=== PATIENT | female | born 1995 | race Caucasian/White ===

== ENCOUNTER 2016-06-19 10:14 | Emergency (ER) | payer MEDICAID, OTHER ==
--- NOTE | 2016-06-19 10:35 | ER Document Report ---
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 A comprehensive ED assessment and evaluation of the patient, analysis of test results and completion of the medical decision making process will be conducted by additional ED providers. TRAVEL OUTSIDE OF THE [place] 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 - Immunizations Hx Diphtheria, Pertussis, Tetanus Vaccination: Yes Physical Exam - Vital signs Vitals: Temp Pulse Resp BP Pulse Ox 98.0 F 86 16 118/75 100 06/19/16 10:06/19/16 10:06/19/16 10:06/19/16 10:06/19/16 10:28 Course - Vital Signs Vital signs: Temp Pulse Resp BP Pulse Ox 98.0 F 86 16 118/75 100 06/19/16 10:06/19/16 10:28 06/19/16 10:06/19/16 10:28 06/19/16 10:28
--- NOTE | 2016-06-19 11:45 | ER Document Report ---
ED Respiratory Problem - General Chief Complaint: Leg Swelling Stated Complaint: LEG PAIN Time seen by provider: 11:39 Mode of Arrival: Ambulatory Information source: Patient Notes: This is a 21-year-old female with a history of an extensive DVT in the left iliac vein (factor V deficiency, May-Thurner syndrome) in 2013. Patient was treated with Coumadin and at that time (with poor control). Patient had most recently been on Lovenox during (delivered 6 months ago). The patient presents to the emergency room with pleuritic left chest pain for the past day. Patient also states she feels "knots" in her left inguinal area. TRAVEL OUTSIDE OF THE [place] 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 - Immunizations Hx Diphtheria, Pertussis, Tetanus Vaccination: Yes Physical Exam - Vital signs Vitals: Temp Pulse Resp BP Pulse Ox 98.0 F 86 16 118/75 100 06/19/16 10:28 06/19/16 10:28 06/19/16 10:28 06/19/16 10:28 06/19/16 10:28 Notes: Physical exam: GENERAL: 21-year-old female, alert and oriented 3, no acute distress HEAD: Atraumatic, normocephalic. EYES: Pupils equal round and reactive to light, extraocular movements intact, sclera anicteric, conjunctiva are normal. ENT: TMs normal, nares patent, oropharynx clear without exudates. Moist mucous membranes. NECK: Normal range of motion, supple without lymphadenopathy or JVD. LUNGS: Breath sounds clear to auscultation bilaterally and equal. No wheezes rales or rhonchi. HEART: Regular rate and rhythm without murmurs, rubs or gallops. ABDOMEN: Soft, nontender, normoactive bowel sounds. No guarding, no rebound. No masses appreciated. EXTREMITIES: The patient is thin, she does have what feels like some shotty, tender left inguinal lymphadenopathy. There is no significant swelling of the lower extremities in the lower extremities neurovascularly intact. There is normal range of motion of the lower extremity. NEUROLOGICAL: Cranial nerves II through XII grossly intact. Normal speech, normal gait. PSYCH: Normal mood, normal affect. SKIN: Warm, Dry, normal turgor, no rashes or lesions noted. Course - Vital Signs Vital signs: Temp Pulse Resp BP Pulse Ox 98.0 F 86 16 118/75 100 06/19/16 10:28 06/19/16 10:28 06/19/16 10:28 06/19/16 10:28 06/19/16 10:28 - Laboratory Result Diagrams: 06/19/16 12:24 06/19/16 12:24 Discharge - Discharge Clinical Impression: pleurisy, left inguinal lymph node Condition: Stable Disposition: HOME, SELF-CARE Additional Instructions: Recommendations: As we discussed: The CT of the chest showed no evidence of blood clots in the lungs. The ultrasound of the leg showed no evidence of blood clots in the leg. It did show a large lymph node which can sometimes arise due to infection. As far as the contrast he received from a CTA: [employer] feels it safe for breast-feeding to continue without interruption after the administration of iodinated contrast. However, even though the risk of radiation is very low, you can discard (pump and dump) the breast milk for the next 24 hours. Follow-up with your primary care doctor: Bring a copy of today's labs, CT report , ultrasound report with you. Return to the emergency room for any worsening pain, shortness of breath or any concerns or getting worse. Referrals: TALI RENAE, KALI-C [Primary Care Provider] - Follow up in 3-5 days
--- NOTE | 2016-06-19 11:53 | XCELERA REPORT ---
[address] [address] Lower Extremity Venous Evaluation Name: ARAVIND CADENA Age: 21 yrs Gender: Female : 1995 Patient Status: Preadmit Patient Location: ER Study Date: 06/19/2016 10:55 AM Procedure: Color flow and duplex imaging of the veins of the left lower extremity as well as the right Common Femoral vein. Reason For Study: LLE swelling Ordering Physician: RUDOLPH RUELAS PA-C Performed By: Amarilys Savage Right Sided Venous Evaluation The right common femoral vein is fully compressible. Spontaneous and phasic flow is present in the right common femoral vein. Left Sided Venous Evaluation Incidental finding of a vascularized lymph node, 2.88 x 0.77 cms in the left groin. Normal vessel filling wall to wall, compression and augmentation as well as Colour flow down to the infrageniculate veins. Critical Findings Called in to Dr Bermeo at 1150. Interpretation Summary No duplex evidence of DVT or obstruction in the left lower extremity nor in the right Common Femoral vein. Vascular left groin node appreciated. : RUDOLPH RUELAS PA-C > Vinay Ricci
[2016-06-19 12:38] LABS: ABSOLUTE BASOPHILS # (AUTO) 0.1 10^3/uL (0.0-0.2); ABSOLUTE EOSINOPHILS # (AUTO) 0.2 10^3/uL (0.0-0.6); ABSOLUTE LYMPHOCYTES (AUTO) 1.3 10^3/uL (0.5-4.7); ABSOLUTE MONOCYTES (AUTO) 0.6 10^3/uL (0.1-1.4); ABSOLUTE NEUT (AUTO) 5.9 10^3/uL (1.7-8.2); BASOPHILS % (AUTO) 0.8 % (0-2); HEMATOCRIT 41.1 % (36.0-47.0); HGB HCT DIFFERENCE 0.9; MEAN CORPUSCULAR HEMOGLOBIN 30.6 pg (27.0-33.4); MEAN CORPUSCULAR VOLUME 90 fl (80-97); MONOCYTES % (AUTO) 7.9 % (3-13); RED BLOOD COUNT 4.58 10^6/uL (3.72-5.28); RED CELL DISTRIBUTION WIDTH 12.3 % (11.5-14.0); SEGMENTED NEUTROPHILS % (AUTO) 72.3 % (42-78); WHITE BLOOD COUNT 8.1 10^3/uL (4.0-10.5)
[2016-06-19 12:46] LABS: PROTHROMBIN TIME 13.5 SEC (11.4-15.4)
[2016-06-19 12:57] LABS: ALANINE AMINOTRANSFERASE 33 U/L (9-52); ALKALINE PHOSPHATASE 66 U/L (38-126); ANION GAP 10 (5-19); ASPARTATE AMINO TRANSFERASE 26 U/L (14-36); BLOOD UREA NITROGEN 7 mg/dL (7-20); CALCIUM 9.8 mg/dL (8.4-10.2); CARBON DIOXIDE 29 mmol/L (22-30); CHLORIDE 104 mmol/L (98-107); CREATININE RESULT 0.67 mg/dL (0.52-1.25); GLUCOSE 86 mg/dL (75-110); POTASSIUM 3.8 mmol/L (3.6-5.0); SODIUM 143.2 mmol/L (137-145); TOTAL PROTEIN 7.4 g/dL (6.3-8.2)
[2016-06-19 17:00] VITALS: BP 102/62
== END 2016-06-19 17:00 | disposition home or self-care (01) ==
LOC: ER 10:14
DX: R09.1 Pleurisy (principal); R59.1 Generalized enlarged lymph nodes; M79.89 Other specified soft tissue disorders; Z91.040 Latex allergy status; Z88.2 Allergy status to sulfonamides; Z86.718 Personal history of other venous thrombosis and embolism
CPT/HCPCS: 36415; 71275; 76705; 80053; 84702; 85025; 85610; 93971; 99284

== ENCOUNTER 2016-11-26 18:04 | Emergency (ER) | payer OTHER ==
--- NOTE | 2016-11-26 18:44 | ER Document Report ---
ED General - General Chief Complaint: Abdominal Pain Stated Complaint: ABDOMINAL BLOATING Time Seen by Provider: 11/26/16 18:37 Mode of Arrival: Ambulatory Information source: Patient Notes: 21-year-old female presents with complaints of bulging in her left lower quadrant. Patient admits to history of ovarian cysts the size of the great foods. Patient denies any fevers chills nausea vomiting or diarrhea. Patient denies any constipation. Patient has had normal bowel movement. Patient does admit that feels like something pushes out and then pushes back in. When he pushes out it feels hard and tender TRAVEL OUTSIDE OF THE [place] IN LAST 30 DAYS: No - HPI Onset: Just prior to arrival Onset/Duration: Sudden Quality of pain: Achy Severity: Mild Pain Level: 1 Associated symptoms: None Exacerbated by: Denies Relieved by: Denies Similar symptoms previously: No Recently seen / treated by doctor: No - Related Data Allergies/Adverse Reactions: alcohol Allergy (Verified 06/19/16 10:30) latex [Latex] Allergy (Verified 06/19/16 10:30) Sulfa (Sulfonamide Antibiotics) Allergy (Verified 06/19/16 10:30) Past Medical History - Social History Smoking Status: Never Smoker Cigarette use (# per day): No Chew tobacco use (# tins/day): No Smoking Education Provided: No Family History: Reviewed & Not Pertinent Patient has suicidal ideation: No Patient has homicidal ideation: No - Past Medical History Cardiac Medical History: Reports: 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 - Immunizations Hx Diphtheria, Pertussis, Tetanus Vaccination: Yes Review of Systems - Review of Systems Notes: REVIEW OF SYSTEMS: CONSTITUTIONAL : Denies fever, chills, or sweats. Denies recent illness. EENT: Denies eye, ear, throat, or mouth pain or symptoms. Denies nasal or sinus congestion or discharge. Denies throat, tongue, or mouth swelling or difficulty swallowing. CARDIOVASCULAR: Denies chest pain. Denies palpitations or racing or irregular heart beat. Denies ankle edema. RESPIRATORY: Denies cough, cold, or chest congestion. Denies shortness of breath, difficulty breathing, or wheezing. GASTROINTESTINAL: Admits to abdominal pain GENITOURINARY: Denies difficulty urinating, painful urination, burning, frequency, blood in urine, or discharge. FEMALE GENITOURINARY: Denies vaginal bleeding, heavy or abnormal periods, irregular periods. Denies vaginal discharge or odor. MUSCULOSKELETAL: Denies back or neck pain or stiffness. Denies joint pain or swelling. SKIN: Denies rash, lesions or sores. HEMATOLOGIC : Denies easy bruising or bleeding. LYMPHATIC: Denies swollen, enlarged glands. NEUROLOGICAL: Denies confusion or altered mental status. Denies passing out or loss of consciousness. Denies dizziness or lightheadedness. Denies headache. Denies weakness or paralysis or loss of use of either side. Denies problems with gait or speech. Denies sensory loss, numbness, or tingling. Denies seizures. PSYCHIATRIC: Denies anxiety or stress. Denies depression, suicidal ideation, or homicidal ideation. ALL OTHER SYSTEMS REVIEWED AND NEGATIVE. PHYSICAL EXAMINATION: GENERAL: Well-appearing, well-nourished and in no acute distress. very thin female HEAD: Atraumatic, , baseline deformity EYES: Pupils equal round and reactive to light, extraocular movements intact, conjunctiva are normal. ENT: Nares patent, oropharynx clear without exudates. Moist mucous membranes. NECK: Normal range of motion, supple without lymphadenopathy LUNGS: Breath sounds clear to auscultation bilaterally and equal. No wheezes rales or rhonchi. HEART: Regular rate and rhythm without murmurs ABDOMEN: Soft, nontender, nondistended abdomen. No guarding, no rebound. No masses appreciated. no pulsatile masses Female : deferred Musculoskeletal: Normal range of motion, no pitting or edema. No cyanosis. NEUROLOGICAL: Cranial nerves grossly intact. Normal speech, normal gait. Normal sensory, motor exams PSYCH: Normal mood, normal affect. SKIN: Warm, Dry, normal turgor, no rashes or lesions noted. Dictation was performed using [employer] recognition software Physical Exam - Vital signs Vitals: Temp Pulse Resp BP Pulse Ox 98.4 F 72 20 120/91 H 100 11/26/16 18:10 11/26/16 18:10 11/26/16 18:10 11/26/16 18:10 11/26/16 18:10 Course - Re-evaluation Re-evalutation: 11/26/16 18:43 There is no bulging noted abdomen is nontender she is extremely thin and otherwise well-appearing, at her request I will ultrasound her for her ovaries but ovarian cyst should not bulge out and then go back and, at most patient has a small hernia which is not noticed on physical examination at this time as patient is asymptomatic 11/26/16 20:57 Patient has an extensive medical history, I spent about 20 minutes speaking with her in regards to life-threatening risk factor My concern the patient concern is that she had a stent in her iliac, patient is not having any severe pain and the pain comes and goes, it bulges intermittently , and the only diagnosis that makes sense would be a hernia. I explained to her very strict return precautions regarding her stent and her clotting disorders. A clot by itself should not cause bulging of the abdomen, it should not cause intermittent abdominal cramping pain. I did explain that the ultrasound today does not evaluate for the stent she states she understands , we do not have vascular ultrasound at this time patient has been instructed that if she does have an emergency that she must return and that we would transfer her at that time After performing a Medical Screening Examination, I estimate there is LOW risk for ACUTE APPENDICITIS, BOWEL OBSTRUCTION, ACUTE CHOLECYSTITIS, PERFORATED DIVERTICULITIS, INCARCERATED HERNIA, PANCREATITIS, PELVIC INFLAMMATORY DISEASE, PERFORATED ULCER, ECTOPIC , or TUBO-OVARIAN ABSCESS, thus I consider the discharge disposition reasonable. Also, there is no evidence or peritonitis , sepsis, or toxicity. I have reevaluated this patient multiple times and no significant life threatening changes are noted. The patient and I have discussed the diagnosis and risks, and we agree with discharging home with close follow-up with the understanding that symptoms and presentations can change. We also discussed returning to the Emergency Department immediately if new or worsening symptoms occur. We have discussed the symptoms which are most concerning (e.g., bloody stool, fever, changing or worsening pain, vomiting) that necessitate immediate return. - Vital Signs Vital signs: Temp Pulse Resp BP Pulse Ox 98.4 F 72 20 120/91 H 100 11/26/16 18:10 11/26/16 18:10 11/26/16 18:10 11/26/16 18:10 11/26/16 18:10 - Diagnostic Test Radiology reviewed: Image reviewed, Reports reviewed - Patient provided with discharge instructions with report Discharge - Discharge Clinical Impression: Abdominal wall bulge, Ruptured ovarian cyst Condition: Stable Disposition: HOME, SELF-CARE Instructions: Abdominal Pain ([facility]) Additional Instructions: At this time there are no life-threatening issues noted however given your extensive history if any symptoms appeared to worsen or there are any other concerns at all you must return immediately for reevaluation. At this time besides abdominal bulging that improves intermittently you have no complaints, however you must return if there are any other issues Referrals: GABI LEON MD [ACTIVE STAFF] - Follow up tomorrow ROBI WAKEFIELD MD [ACTIVE STAFF] - Follow up tomorrow SARIKA RENAE MD [ACTIVE STAFF] - Follow up tomorrow
[2016-11-26 19:06] LABS: APPEARANCE,URINE CLEAR; BILIRUBIN,URINE NEGATIVE (NEGATIVE); GLUCOSE, URINE NEGATIVE (NEGATIVE); KETONES,URINE NEGATIVE (NEGATIVE); LEUKOCYTE ESTERASE,URINE NEGATIVE (NEGATIVE); NITRITE,URINE NEGATIVE (NEGATIVE); PROTEIN,URINE NEGATIVE (NEGATIVE); URINE SPECIFIC GRAVITY 1.008; UROBILINOGEN,URINE NEGATIVE mg/dL (<2.0)
--- NOTE | 2016-11-26 20:13 | RADIOLOGY REPORT (SQ) ---
EXAM DESCRIPTION: U/S NON-OB PELVIS TV W/O DOP COMPLETED DATE/TIME: 11/26/2016 8:00 pm REASON FOR STUDY: ovarian cyst COMPARISON: None. TECHNIQUE: Dynamic and static grayscale images acquired of the pelvis via transvaginal approach and recorded on PACS. Additional selected color Doppler and spectral images recorded. LIMITATIONS: None. FINDINGS: UTERUS: Contour normal. No mass. ENDOMETRIAL STRIPE: No focal or generalized thickening. No masses. CERVIX: No nabothian cysts. RIGHT OVARY: 2.2 cm cyst. RIGHT OVARY DOPPLER: Normal arterial vascular flow without evidence for torsion. LEFT OVARY: No abnormal masses. LEFT OVARY DOPPLER: Normal arterial vascular flow without evidence for torsion. FREE FLUID: Mild cul-de-sac free fluid. OTHER: No other significant finding. MEASUREMENTS: UTERUS: 6.1 x 4.0 x 3.5 cm ENDOMETRIAL STRIPE: 4.5 mm RIGHT OVARY: 4.5 x 3.5 x 1.8 cm LEFT OVARY: 1.6 x 3.1 x 1.2 cm IMPRESSION: Probable ruptured 2.2 cm right ovarian cyst. TECHNICAL DOCUMENTATION: JOB ID: [id number] [facility]- All Rights Reserved
[2016-11-26] MEDS ORDERED: HYDROCODONE/ACETAMINOPHEN 5-325 MG 6 TAB/DSPK PO PRN (20:52)
[2016-11-26 21:07] VITALS: BP 99/62
== END 2016-11-26 21:07 | disposition home or self-care (01) ==
LOC: ER 18:04
DX: R19.04 Left lower quadrant abdominal swelling, mass and lump (principal); N83.209 Unspecified ovarian cyst, unspecified side; R10.9 Unspecified abdominal pain; D68.51 Activated protein C resistance; D72.0 Genetic anomalies of leukocytes; Z95.828 Presence of other vascular implants and grafts; J45.909 Unspecified asthma, uncomplicated; Z88.2 Allergy status to sulfonamides; Z91.040 Latex allergy status; Z91.018 Allergy to other foods
CPT/HCPCS: 76830; 81001; 81025; 99284

== ENCOUNTER 2017-03-17 11:29 | Emergency (ER) | payer OTHER ==
--- NOTE | 2017-03-17 11:51 | ER Document Report ---
ED Medical Screen (RME) - General Chief Complaint: Loss of Vision Stated Complaint: BLACKED OUT Time Seen by Provider: 03/17/17 11:44 Mode of Arrival: Ambulatory Information source: Patient TRAVEL OUTSIDE OF THE [place] IN LAST 30 DAYS: No - HPI Patient complains to provider of: Vision loss in right eye intermittent Notes: 03/17/17 11:51 Patient is a 22-year-old female with a complicated medical history including factor V Leiden deficiency and may So syndrome, who takes a daily baby aspirin at this point, presenting with intermittent right eye vision loss, stating that her vision in her right eye will black out for approximately 2 minutes at a time, today she felt like she was going to pass out when it occurred as well - Related Data Allergies/Adverse Reactions: alcohol Allergy (Verified 03/17/17 11:34) latex [Latex] Allergy (Verified 03/17/17 11:34) Sulfa (Sulfonamide Antibiotics) Allergy (Verified 03/17/17 11:34) Past Medical History - Social History Frequency of alcohol use: None Drug Abuse: None - Past Medical History Cardiac Medical History: Reports: 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 - Immunizations Hx Diphtheria, Pertussis, Tetanus Vaccination: Yes Physical Exam - Vital signs Vitals: Temp Pulse Resp BP Pulse Ox 98.7 F 112 H 16 127/88 H 100 03/17/17 11:34 03/17/17 11:34 03/17/17 11:34 03/17/17 11:34 03/17/17 11:34 Course - Vital Signs Vital signs: Temp Pulse Resp BP Pulse Ox 98.7 F 112 H 16 127/88 H 100 03/17/17 11:34 03/17/17 11:34 03/17/17 11:34 03/17/17 11:34 03/17/17 11:34
[2017-03-17 12:12] LABS: ABSOLUTE EOSINOPHILS # (AUTO) 0.5 10^3/uL (0.0-0.6); ABSOLUTE LYMPHOCYTES (AUTO) 1.5 10^3/uL (0.5-4.7); ABSOLUTE MONOCYTES (AUTO) 0.4 10^3/uL (0.1-1.4); ABSOLUTE NEUT (AUTO) 3.1 10^3/uL (1.7-8.2); BASOPHILS % (AUTO) 0.6 % (0-2); EOSINOPHILS % (AUTO) 9.3 % (0-6); HEMATOCRIT 43.6 % (36.0-47.0); HEMOGLOBIN 15.1 g/dL (12.0-15.5); HGB HCT DIFFERENCE 1.7; LYMPHOCYTES % (AUTO) 26.7 % (13-45); MEAN CORPUSCULAR HGB CONC 34.6 g/dL (32.0-36.0); MEAN CORPUSCULAR VOLUME 90 fl (80-97); MONOCYTES % (AUTO) 7.5 % (3-13); RED BLOOD COUNT 4.86 10^6/uL (3.72-5.28); RED CELL DISTRIBUTION WIDTH 12.1 % (11.5-14.0); SEGMENTED NEUTROPHILS % (AUTO) 55.9 % (42-78); WHITE BLOOD COUNT 5.6 10^3/uL (4.0-10.5)
--- NOTE | 2017-03-17 12:14 | ER Document Report ---
ED Eye Complaint - General Chief Complaint: Loss of Vision Stated Complaint: BLACKED OUT Time Seen by Provider: 03/17/17 11:44 Mode of Arrival: Ambulatory Notes: 22 yo asthma, scoliosis, May-Thurners syndrome, factor 5 Liedin, torticollis, hx dvt, stent in left iliac vein, female c/o sudden onset completely lost vision in right eye, "black" at 9 am, lasted 2 minutes, got tingling/numb feeling all over body at same time. Similar episode of black right eye vision sunday lasted only 30 seconds- around 7 pm. This occurred once 2 years ago, once last april for same- eye doctor looked at retina-all negative workup. Hx. chronic migraines- behind both eyes and bottom of skull-neurologist [place] from [facility] [place]. Takes 1 baby ASA per day. LMP- February 21. No headache, no nausea or vomiting, chest pain, shortness of breath. TRAVEL OUTSIDE OF THE [place] 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 - Immunizations Hx Diphtheria, Pertussis, Tetanus Vaccination: Yes Review of Systems - Review of Systems Constitutional: No symptoms reported EENT: See HPI Cardiovascular: No symptoms reported Respiratory: No symptoms reported Gastrointestinal: No symptoms reported Genitourinary: No symptoms reported Female Genitourinary: No symptoms reported Musculoskeletal: No symptoms reported Skin: No symptoms reported Hematologic/Lymphatic: No symptoms reported Neurological/Psychological: See HPI Physical Exam - Vital signs Vitals: Temp Pulse Resp BP Pulse Ox 98.7 F 112 H 16 127/88 H 100 03/17/17 11:34 03/17/17 11:34 03/17/17 11:34 03/17/17 11:34 03/17/17 11:34 Interpretation: Normal - General General appearance: Appears well, Alert In distress: None - HEENT Head: Normocephalic, Atraumatic Eyes: Normal Conjunctiva: Normal Cornea: Normal. No: Flourescein stain uptake Eyelashes: Normal Pupils: PERRL Anterior chamber: Normal Nerve palsy: No Pharynx: Normal Neck: Lymphadenopathy, Supple - Respiratory Respiratory status: No respiratory distress Chest status: Nontender Breath sounds: Normal Chest palpation: Normal - Cardiovascular Rhythm: Regular Heart sounds: Normal auscultation Murmur: No - Abdominal Inspection: Normal Distension: No distension Bowel sounds: Normal Tenderness: Nontender Organomegaly: No organomegaly - Back Back: Normal, Nontender - Extremities General upper extremity: Normal inspection, Nontender, Normal color, Normal ROM , Normal temperature General lower extremity: Normal inspection, Nontender, Normal color, Normal ROM , Normal temperature, Normal weight bearing. No: Christina's sign - Neurological Neuro grossly intact: Yes Cognition: Normal Orientation: AAOx4 [place] Coma Scale Eye Opening: Spontaneous Porfirio Coma Scale Verbal: Oriented Porfirio Coma Scale Motor: Obeys Commands Porfirio Coma Scale Total: 15 Speech: Normal Motor strength normal: LUE, RUE, LLE, RLE Sensory: Normal - Psychological Associated symptoms: Normal affect, Normal mood - Skin Skin Temperature: Warm Skin Moisture: Dry Skin Color: Normal Course - Re-evaluation Re-evalutation: 03/17/[address] yost for pt follow up. Rec. increasing to 325 ASA per day. Discussed with pt, she completely understands. 03/18/17 21:32 - Vital Signs Vital signs: Temp Pulse Resp BP Pulse Ox 98.7 F 84 16 97/61 L 98 03/17/17 11:34 03/17/17 16:08 03/17/17 16:08 03/17/17 16:08 03/17/17 16:08 - Laboratory Result Diagrams: 03/17/17 11:55 03/17/17 11:55 Laboratory results interpreted by me: 03/17/17 03/17/17 11:55 11:55 Eosinophils % 9.3 H Sodium 145.2 H Discharge - Discharge Clinical Impression: Amaurosis fugax, right eye Condition: Good Disposition: HOME, SELF-CARE Additional Instructions: see your provider on sunday for follow up, give her all the results you will need outpatient carotid dopplers increase baby aspirin to 4 81mg per day to er if worsening symptoms Please complete the patient satisfaction survey if you get one, and return it.. If you do not receive a survey, then you can go to the [facility] website, [email or web address] and place your comments about your very good care. Thank you very much. It was a pleasure being your medical provider today. Referrals: VAMSHI ARTEAGA MD [EMERITUS] - Follow up in 3-5 days
[2017-03-17 12:20] LABS: PROTHROMBIN TIME 13.4 SEC (11.4-15.4)
[2017-03-17 12:21] LABS: PARTIAL THROMBOPLASTIN TIME 29.7 SEC (23.5-35.8)
[2017-03-17 12:23] LABS: ALANINE AMINOTRANSFERASE 35 U/L (9-52); ALBUMIN 4.9 g/dL (3.5-5.0); ALKALINE PHOSPHATASE 60 U/L (38-126); ANION GAP 14 (5-19); ASPARTATE AMINO TRANSFERASE 23 U/L (14-36); BILIRUBIN,DIRECT 0.3 mg/dL (0.0-0.4); BLOOD UREA NITROGEN 8 mg/dL (7-20); CALCIUM 10.2 mg/dL (8.4-10.2); CARBON DIOXIDE 26 mmol/L (22-30); CHLORIDE 105 mmol/L (98-107); CREATININE RESULT 0.68 mg/dL (0.52-1.25); GLUCOSE 91 mg/dL (75-110); POTASSIUM 3.9 mmol/L (3.6-5.0); SODIUM 145.2 mmol/L (137-145); TOTAL PROTEIN 7.8 g/dL (6.3-8.2)
--- NOTE | 2017-03-17 15:38 | RADIOLOGY REPORT (SQ) ---
EXAM DESCRIPTION: MRI HEAD COMBO COMPLETED DATE/TIME: 03/17/2017 3:10 pm REASON FOR STUDY: brain orbit, vision loss COMPARISON: None. TECHNIQUE: Multiplanar imaging includes non-contrasted T1, T2, FLAIR, diffusion with ADC map and pos t gadolinium contrast sequences. Additional thin slice images with and without gadolinium contrast a cquired of the orbits. Images stored on PACS. CONTRAST TYPE AND DOSE: 8 mL Multihance. RENAL FUNCTION: None required. The patient is less than 50 years old. LIMITATIONS: None. FINDINGS: ANATOMY: No anomalies. Normal vascular flow voids. Pituitary fossa normal. CSF SPACES: Normal in size and contour. CEREBRUM: Sulci and gyri normal in size and contour. Normal white matter signal on FLAIR imaging. N o hemorrhage. No edema, masses or mass effect. No enhancing lesions. POSTERIOR FOSSA: No signal alteration. No hemorrhage. No edema, masses or mass effect. Internal ulisses tory canals, cerebello-pontine angles, mastoids normal. No enhancing lesions. DIFFUSION IMAGING: Negative for acute or sub-acute infarction. ORBITS: No masses. Globes normal. Extraocular muscles and optic nerves normal. Orbital fat clear. No inflammatory changes or enhancement. PARANASAL SINUSES: Incidental note is made of mucosal thickening involving the floors of the maxillar y sinuses bilaterally. No fluid levels to suggest acute sinusitis. The remaining paranasal sinuses and mastoid air cells appear clear. OTHER: No other significant finding. IMPRESSION: NORMAL MRI OF THE BRAIN AND ORBITS WITHOUT AND WITH INTRAVENOUS GADOLINIUM CONTRAST. TECHNICAL DOCUMENTATION: JOB ID: [id number]- All Rights Reserved
[2017-03-17 16:09] VITALS: BP 97/61
== END 2017-03-17 16:11 | disposition home or self-care (01) ==
LOC: ER 11:29
DX: G45.3 Amaurosis fugax (principal); R55 Syncope and collapse; M41.9 Scoliosis, unspecified; D68.51 Activated protein C resistance; Z86.718 Personal history of other venous thrombosis and embolism; Z79.82 Long term (current) use of aspirin
CPT/HCPCS: 99284; 36415; 84703; 85025; 85610; 85730; 80053; 70553; A9577

== ENCOUNTER → 2017-04-06 | Outpatient (CLI) | payer OTHER ==
--- NOTE | 2017-04-06 16:17 | RADIOLOGY REPORT (SQ) ---
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 Source and MIP images are saved and reviewed on PACS. Advanced 3D imaging as volume-rendering, MIPs, SSD performed? yes All CT scanners at this facility use dose modulation, iterative reconstruction, and/or weight based d osing when appropriate to reduce radiation dose to as low as reasonably achievable (ALARA). [facility]: Dose Right [facility]: CareDose [facility]: Dose Right [facility]: Teradose 4D [facility]: [employer] CONTRAST TYPE AND DOSE: contrast/concentration: Isovue 370.00 mg/ml; Total Contrast Delivered: 80.0 ml; Total Saline Delivered: 75.1 ml RENAL FUNCTION: None required. The patient is less than 50 years old. LIMITATIONS: None. FINDINGS: [place]: The anterior, middle, posterior cerebral arteries are all patent. No ev idence of aneurysm or focal stenosis. In particular, no flow significant stenosis of the right inter nal carotid artery is seen at the central skullbase. POSTERIOR CIRCULATION: The distal vertebral arteries are patent as is the basilar artery. No aneurysm . BRAIN: Low lying cerebellar tonsils, with effacement of the CSF spaces around the medulla at the fora men magnum. 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 Mild ri ght-sided basilar impression is present without vascular impingement. BONES: Intact as visualized. SINUSES: Diffuse sinusitis with mucous membrane thickening and air-fluid levels in the bilateral maxi llary and ethmoid air cells, small amount of fluid in the left frontal sinus. OTHER: No other significant finding. IMPRESSION: NO CTA EVIDENCE OF STENOSIS OR ANEURYSM OF THE [place]. TECHNICAL DOCUMENTATION: JOB ID: [id number] Quality ID # [id number]: Final reports with documentation of one or more dose reduction techniques (e.g., Au tomated exposure control, adjustment of the mA and/or kV according to patient size, use of iterative reconstruction technique) 2010 [employer]- All Rights Reserved
== END ==
LOC: RAD 14:30
PROVIDERS: ATTEND Specialist
DX: G44.59 Other complicated headache syndrome (principal)
CPT/HCPCS: 70496

== ENCOUNTER 2017-06-15 11:54 | Emergency (ER) | payer OTHER ==
[2017-06-15 12:22] VITALS: BP 110/62
[2017-06-15] MEDS ORDERED: NAPROXEN 375 MG TABLET PO ONE (12:46)
[2017-06-15] MEDS ORDERED: PROCHLORPERAZINE MALEATE 10 MG TABLET PO ONE (12:46)
[2017-06-15] MEDS ORDERED: DIPHENHYDRAMINE HCL 25 MG CAPSULE PO ONE (12:46)
--- NOTE | 2017-06-15 12:47 | ER Document Report ---
ED Medical Screen (RME) - General Chief Complaint: Headache Stated Complaint: HEADACHE,CRAMPING Time Seen by Provider: 06/15/17 12:42 Notes: 22-year-old female patient complains of migraine-like headache behind the right eye that started last night. This is a common occurrence. LMP started this morning with severe cramping which is worse than usual and the bleeding is worse than usual with clots. I have greeted and performed a rapid initial assessment of this patient. A comprehensive ED assessment and evaluation of the patient, analysis of test results and completion of the medical decision making process will be conducted by additional ED providers. TRAVEL OUTSIDE OF THE [place] 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 - Immunizations Hx Diphtheria, Pertussis, Tetanus Vaccination: Yes Physical Exam - Vital signs Vitals: Temp Pulse Resp BP Pulse Ox 98.2 F 73 18 110/62 100 06/15/17 12:21 06/15/17 12:21 06/15/17 12:21 06/15/17 12:21 06/15/17 12:21 Course - Vital Signs Vital signs: Temp Pulse Resp BP Pulse Ox 98.2 F 73 18 110/62 100 06/15/17 12:21 06/15/17 12:21 06/15/17 12:21 06/15/17 12:21 06/15/17 12:21
[2017-06-15 13:19] LABS: APPEARANCE,URINE CLEAR; BILIRUBIN,URINE NEGATIVE (NEGATIVE); COLOR,URINE YELLOW; GLUCOSE, URINE NEGATIVE (NEGATIVE); KETONES,URINE NEGATIVE (NEGATIVE); LEUKOCYTE ESTERASE,URINE NEGATIVE (NEGATIVE); NITRITE,URINE NEGATIVE (NEGATIVE); PROTEIN,URINE NEGATIVE (NEGATIVE); URINE SPECIFIC GRAVITY 1.006; UROBILINOGEN,URINE NEGATIVE mg/dL (<2.0)
--- NOTE | 2017-06-15 14:34 | ER Document Report ---
ED Headache - General Chief Complaint: Headache Stated Complaint: HEADACHE,CRAMPING Time Seen by Provider: 06/15/17 12:42 Mode of Arrival: Ambulatory Information source: Patient TRAVEL OUTSIDE OF THE [place] IN LAST 30 DAYS: No - HPI Patient complains to provider of: Headache Notes: Patient arrives with complaints of headache and severe menstrual cramps. The patient has a long history of migraine type headaches. She has had a normal MRI and CTA of her head within the last 3 months. She sees a neurologist for this and tells me that she is being referred to a neurosurgeon due to a "blockage" in the next couple months. She arrives today with headache on the right side of her head and behind her right eye. She states that this feels like her typical headaches that she has. She states that is not the worst headache she is ever had. She is not on blood thinners, denies any recent injuries, fever, unilateral numbness tingling or weakness. When she has the headache she loses vision in her right eye which is also normal for her, she states that that was present this morning, but the vision is back to normal now. Her main reason for today's visit was menstrual cramping. She states that started. This morning and the cramps are worse than they normally are she wanted to have this evaluated. She also reports that this is not uncommon for her and she is seen 6 different [facility] IMPREGNATOR's regarding this and she tells me that no one has found any specific reason for her severe menstruation. She also reports a history of ovarian cyst. She is on no blood thinning medications. She denies any nausea, vomiting, diarrhea. No fevers. No rash. She was given medications for her headache in triage, and states that her headache is significantly better she does still have some menstrual cramping. She denies any other complaints at this time. 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 - Immunizations Hx Diphtheria, Pertussis, Tetanus Vaccination: Yes Review of Systems - Review of Systems -: Yes All other systems reviewed and negative Physical Exam - Vital signs Vitals: Temp Pulse Resp BP Pulse Ox 98.2 F 73 18 110/62 100 06/15/17 12:21 06/15/17 12:21 06/15/17 12:21 06/15/17 12:21 06/15/17 12:21 - Notes Notes: GENERAL: alert, cooperative, nontoxic, no distress. HEAD: normocephalic, atraumatic EYES: conjunctiva pink without discharge, no external redness or swelling. Pupils are equal, round, reactive to light. EARS: no external swelling, no external redness NOSE: atraumatic, no external swelling MOUTH/THROAT: mucous membranes moist and pink, posterior pharynx without erythema, swelling, exudate. No trismus or drooling. NECK: soft, supple, full range of motion, no meningismus. CHEST: no distress, lungs clear and equal throughout. No wheezing, rales, rhonchi. CARDIAC: regular rate and rhythm, no murmur, normal capillary refill, normal pulses. No peripheral edema noted. ABDOMEN: Abdomen is soft, flat with no significant tenderness on exam. No rebound tenderness or guarding. No obvious mass. BACK: full range of motion, no CVA tenderness. EXTREMITIES: full range of motion of all extremities. No redness, no swelling. NEURO: alert and oriented x 3, cranial nerves II through XII are grossly intact. Upper and lower extremities are equal throughout. Normal sensation. No focal deficits, full range of motion of all extremities. normal finger to nose. NIH stroke score of 0. PYSCH: appropriate mood, affect. Patient is cooperative. SKIN: pink, warm, dry, no rash. Course - Re-evaluation Re-evalutation: 06/15/17 14:32 Patient is nontoxic appearing with stable vitals and arrives with 2 chronic complaints. One is a migraine type headache which is now resolved after medications from triage. Second chronic complaint is menstrual cramps are more severe than normal. She is on no blood thinning medications. She has no abdominal tenderness on exam. Her vitals are stable. She has a normal neurological exam. No fever. No sign of meningitis or subarachnoid hemorrhage. Urinalysis shows blood with no signs of infection her urine is negative. Again the patient's headache has significant improved at this time and his are normal chronic headache that she experiences frequently. She sees a neurologist for this headache and has had recent imaging including an MRI and a CTA within the last 3 months that were all normal. As far as her menstrual cramps ago, this again is chronic as well. She tells me she has seen 6 different [facility] IMPREGNATOR's and no one is found the exact source or reason for her cramping. At this point the patient shows no signs of anemia or significant blood loss and has a nontender nonfocal abdominal exam, therefore do not believe any imaging is needed at this time. She was instructed to follow back up with her WAD IMPREGNATOR regarding her chronic menstrual cramps. Patient will be discharged home with a prescription for Voltaren. She will be instructed to follow up sooner if she develops high fevers, persistent vomiting, severe pain, or for any further concerns. The patient's emergency department workup and current diagnosis were explained to the patient and or family. Follow-up instructions were provided. Medications if prescribed were discussed. Instructions for when to return to the emergency department including specific worrisome symptoms were discussed with the patient and/or family. - Vital Signs Vital signs: Temp Pulse Resp BP Pulse Ox 98.2 F 73 18 110/62 100 06/15/17 12:21 06/15/17 12:21 06/15/17 12:21 06/15/17 12:21 06/15/17 12:21 - Laboratory Laboratory results interpreted by me: 06/15/17 12:55 Urine Blood SMALL H Discharge - Discharge Clinical Impression: Dysmenorrhea Migraine headache Qualifiers: Migraine type: unspecified Status migrainosus presence: without status migrainosus Intractability: not intractable Qualified Code(s): G43.909 - Migraine, unspecified, not intractable, without status migrainosus Condition: Stable Disposition: HOME, SELF-CARE Instructions: Anti-Inflammatory Medication ([facility]), Headache ([facility]), Dysmenorrhea ([facility]) Additional Instructions: Take medications as prescribed. Follow-up with your WAD IMPREGNATOR at the next available appointment. Follow-up sooner for increasing pain, high fevers, persistent vomiting, or any further concerns. Follow-up with your neurologist regarding your migraines. Prescriptions: Diclofenac Sodium [Voltaren 50 Mg Tablet.] 50 mg PO BID #20 tablet.dr Forms: Smoking Cessation Education Referrals: [facility] [Provider Group] - Follow up as needed
== END 2017-06-15 14:44 | disposition home or self-care (01) ==
LOC: ER 11:54
DX: N94.6 Dysmenorrhea, unspecified (principal); G43.909 Migraine, unspecified, not intractable, without status migrainosus
CPT/HCPCS: 99283; 81025; 81001; J3490; S0183

== ENCOUNTER 2017-12-15 13:50 | Emergency (ER) | payer OTHER ==
[2017-12-15 14:28] VITALS: BP 118/68
--- NOTE | 2017-12-15 15:12 | ER Document Report ---
HPI - HPI Patient complains to provider of: breast lump Onset: Other - month Onset/Duration: Persistent Quality of pain: Achy Severity: Severe Pain Level: 4 Context: Patient presents to emergency department with complaints of breast lump. Patient reports lump to her right breast for the past month. Denies trauma. Denies fever. Denies nipple discharge. Patient reports distant paternal aunt with history of breast cancer. Reports she has been to to urgent cares and was told to come to the emergency department for an ultrasound. Reports she tried to go to her primary care but they were closed all week. 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 - Immunizations Hx Diphtheria, Pertussis, Tetanus Vaccination: Yes Vertical Provider Document - CONSTITUTIONAL Agree With Documented VS: Yes Exam Limitations: No Limitations General Appearance: WD/WN, No Apparent Distress - INFECTION CONTROL TRAVEL OUTSIDE OF THE [place] IN LAST 30 DAYS: No - HEENT HEENT: Atraumatic, Normocephalic - NECK Neck: Normal Inspection, Supple. negative: Lymphadenopathy-Left, Lymphadenopathy-Right - RESPIRATORY Respiratory: Breath Sounds Normal, No Respiratory Distress, Other - right breast with lumps below the nipple 600-900, no erythema, no warmth, no lyphm node swelling - CARDIOVASCULAR Cardiovascular: Regular Rate - GI/ABDOMEN Gastrointestinal: Abdomen Soft - MUSCULOSKELETAL/EXTREMETIES Musculoskeletal/Extremeties: JAMSHID FUNK - NEURO Level of Consciousness: Awake, Alert, Appropriate Motor/Sensory: No Motor Deficit - DERM Integumentary: Warm, Dry Adult Front & Back Diagram: 1 - breast lump irregular from [id number] Course - Re-evaluation Re-evalutation: 12/15/17 She was instructed on the importance of follow-up with her primary care provider to obtain a referral for mammogram. He was also instructed on signs and symptoms of infection. She verbalized understanding all instructions. - Vital Signs Vital signs: Temp Pulse Resp BP Pulse Ox 98.4 F 63 16 118/68 99 12/15/17 14:27 12/15/17 14:27 12/15/17 14:27 12/15/17 14:27 12/15/17 14:27 Discharge - Discharge Clinical Impression: Breast lump Condition: Stable Disposition: HOME, SELF-CARE Additional Instructions: *You have been evaluated for right side breast lump *Take tylenol or motrin for the pain *Wear a good supporting bra *Follow up with your primary care provider Sunday for evaluation and referral for mamogram *Return to ED for worsening condition, changes, needs
== END 2017-12-15 15:20 | disposition home or self-care (01) ==
LOC: ER 13:50
DX: N63.0 Unspecified lump in unspecified breast (principal); J45.909 Unspecified asthma, uncomplicated; Z80.3 Family history of malignant neoplasm of breast
CPT/HCPCS: 99283

== ENCOUNTER 2018-03-13 20:19 | Emergency (ER) | payer SELFPAY ==
--- NOTE | 2018-03-13 20:51 | ER Document Report ---
ED Medical Screen (RME) - General Chief Complaint: Arm Pain Stated Complaint: ARM PAIN Time Seen by Provider: 03/13/18 20:43 Mode of Arrival: Ambulatory Information source: Patient Notes: Patient is a 23-year-old female who presents with pain in the left arm. Patient reports that she has had blood clots in her left lower extremity. That were extensive. Patient currently taking aspirin 81 mg daily is not taking any other blood thinners. Patient reports this pain has been going on for 1 day describes it as a shooting pain from her wrist to her bicep, there is also an associated knot noted in her left forearm. I have greeted and performed a rapid initial assessment of this patient. A comprehensive ED assessment and evaluation of the patient, analysis of test results and completion of the medical decision making process will be conducted by additional ED providers. Dictation of this chart was performed using voice recognition software; therefore, there may be some unintended grammatical errors. TRAVEL OUTSIDE OF THE [place] 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 - Immunizations Hx Diphtheria, Pertussis, Tetanus Vaccination: Yes Physical Exam - Vital signs Vitals: Temp Pulse Resp BP Pulse Ox 98.6 F 86 14 122/85 100 03/13/18 20:25 03/13/18 20:25 03/13/18 20:25 03/13/18 20:25 03/13/18 20:25 Course - Vital Signs Vital signs: Temp Pulse Resp BP Pulse Ox 98.6 F 86 14 122/85 100 03/13/18 20:25 03/13/18 20:25 03/13/18 20:25 03/13/18 20:25 03/13/18 20:25 Doctor's Discharge - Discharge Referrals: EVETTE ORO PA [Primary Care Provider] - Follow up as needed
--- NOTE | 2018-03-13 21:12 | ER Document Report ---
ED General - General Chief Complaint: Arm Pain Stated Complaint: ARM PAIN Time Seen by Provider: 03/13/18 20:43 Mode of Arrival: Ambulatory Information source: Patient Notes: This is a 23-year-old female with a history of May-Thurner's syndrome, factor V Leyden deficiency, status post DVT/left iliac vein stent who is now only on baby aspirin daily. Patient presents with pain to the left forearm for 1 day. She denies any chest pain or shortness of breath. Concern is for possible blood clot. Her symptoms started earlier today. Recent illnesses. TRAVEL OUTSIDE OF THE [place] IN LAST 30 DAYS: No - HPI Onset: Just prior to arrival Onset/Duration: Gradual Quality of pain: Dull Severity: Mild Pain Level: 1 Associated symptoms: denies: Chest pain, Fever, Shortness of breath Exacerbated by: Denies Relieved by: Denies Similar symptoms previously: No Recently seen / treated by doctor: No - Related Data Allergies/Adverse Reactions: alcohol Allergy (Verified 12/15/17 13:50) latex [Latex] Allergy (Verified 12/15/17 13:50) Sulfa (Sulfonamide Antibiotics) Allergy (Verified 12/15/17 13:50) Past Medical History - General Information source: Patient - Social History Smoking Status: Never Smoker Cigarette use (# per day): No Chew tobacco use (# tins/day): No Frequency of alcohol use: Occasional Drug Abuse: None Lives with: Family Family History: Malignancy - paternal aunt with breast cancer Patient has suicidal ideation: No Patient has homicidal ideation: No - Past Medical History Cardiac Medical History: Reports: 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 - Immunizations Hx Diphtheria, Pertussis, Tetanus Vaccination: Yes Review of Systems - Review of Systems Constitutional: denies: Chills, Fever EENT: No symptoms reported Cardiovascular: No symptoms reported Respiratory: No symptoms reported Gastrointestinal: No symptoms reported Genitourinary: No symptoms reported Female Genitourinary: No symptoms reported Musculoskeletal: See HPI Skin: No symptoms reported Hematologic/Lymphatic: No symptoms reported Neurological/Psychological: No symptoms reported Physical Exam - Vital signs Vitals: Temp Pulse Resp BP Pulse Ox 98.6 F 86 14 122/85 100 03/13/18 20:25 03/13/18 20:25 03/13/18 20:25 03/13/18 20:25 03/13/18 20:25 Notes: Physical exam: GENERAL: Patient is alert and oriented no acute distress HEAD: Atraumatic, normocephalic. EYES: Pupils equal round and reactive to light, extraocular movements intact, sclera anicteric, conjunctiva are normal. ENT: Moist mucous membranes. NECK: Normal range of motion, supple without obvious mass or JVD. LUNGS: Breath sounds clear to auscultation bilaterally and equal. No wheezes rales or rhonchi. HEART: Regular rate and rhythm without murmurs, rubs or gallops. EXTREMITIES: Normal range of motion, no pitting or edema. No clubbing or cyanosis. Patient's left upper extremity shows good cap refill. Good radial pulse. The area in question is on the volar surface of the forearm. There is no obvious swelling, erythema or lesions. NEUROLOGICAL: Cranial nerves II through XII grossly intact. Normal speech, moving all extremities. PSYCH: Normal mood, normal affect. SKIN: Warm, Dry, normal turgor, no rashes or lesions noted. Course - Vital Signs Vital signs: Temp Pulse Resp BP Pulse Ox 98.8 F 96 16 102/81 98 03/13/18 23:51 03/13/18 23:51 03/13/18 23:51 03/13/18 23:51 03/13/18 23:51 - Diagnostic Test Radiology reviewed: Image reviewed, Reports reviewed - Ultrasound shows no evidence of blood clots Discharge - Discharge Clinical Impression: Left arm pain Condition: Stable Disposition: HOME, SELF-CARE Additional Instructions: As we discussed, the ultrasound shows no evidence of a blood clot today. I would continue the aspirin. I would follow-up with [facility]: Bring a copy of today's ultrasound with you. If you L up worsening pain or started having swelling in the arm, the ultrasound may need to be repeated. To the ER for any chest pain, shortness of breath or any concerns or getting worse. Referrals: PETROSKY,EVETTE, PA [Primary Care Provider] - Follow up as needed
--- NOTE | 2018-03-13 22:58 | RADIOLOGY REPORT (SQ) ---
US EXTREMITY VEINS UNILATERAL HISTORY: Arm pain and swelling. COMPARISON: None. TECHNIQUE: Grayscale, color Doppler, and spectral Doppler images of the left upper extremity were performed. FINDINGS: The internal jugular, subclavian, axillary, brachial, basilic, and cephalic veins are patent and compressible. Normal color Doppler blood flow and augmentation in the aforementioned veins. The distal veins are also patent. IMPRESSION: No evidence of DVT in the left upper extremity.
[2018-03-13 23:52] VITALS: BP 102/81
== END 2018-03-13 23:52 | disposition home or self-care (01) ==
LOC: ER 20:19
DX: M79.632 Pain in left forearm (principal); D68.51 Activated protein C resistance; J45.909 Unspecified asthma, uncomplicated
CPT/HCPCS: 93971; 99284

== ENCOUNTER 2018-10-10 19:31 | Emergency (ER) | payer BC ==
[2018-10-10 19:49] VITALS: BP 111/63
[2018-10-10] MEDS ORDERED: PREDNISONE 20 MG TABLET PO ONE (20:43)
[2018-10-10] MEDS ORDERED: NORMAL SALINE 1000 ML 1,000 ML IV ONE (20:43)
[2018-10-10] MEDS ORDERED: IPRATROPIUM/ALBUTEROL 0.5-2.5 MG/3 ML AMPUL NEB ONE (20:44)
--- NOTE | 2018-10-10 20:45 | ER Document Report ---
ED Medical Screen (RME) - General Chief Complaint: Near Syncope Stated Complaint: FEELING FAINT Time Seen by Provider: 10/10/18 20:43 Primary Care Provider: EVETTE MAI PA-C [Primary Care Provider] - Follow up as needed Mode of Arrival: Wheelchair Information source: Patient Notes: Patient presents complaining of lower pelvic pain that started yesterday. Lucía pettit does have a history of endometriosis and is on her menstrual cycle. Patient does complain of some heavy vaginal bleeding and feels as though she is going to pass out. Patient additionally has a history of asthma and has been wheezing with cough recently. hx: Asthma, DVT, endometriosis, factor V Leiden, May Thurner syndrome, left iliac vein stent I have greeted and performed a rapid initial assessment of this patient. A comprehensive ED assessment and evaluation of the patient, analysis of test results and completion of the medical decision making process will be conducted by additional ED providers. TRAVEL OUTSIDE OF THE [place] IN LAST 30 DAYS: No - Related Data Allergies/Adverse Reactions: alcohol Allergy (Verified 10/10/18 19:33) latex [Latex] Allergy (Verified 10/10/18 19:33) Sulfa (Sulfonamide Antibiotics) Allergy (Verified 10/10/18 19:33) Past Medical History - Past Medical History Cardiac Medical History: Reports: 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 - Immunizations Hx Diphtheria, Pertussis, Tetanus Vaccination: Yes Physical Exam - Vital signs Vitals: Temp Pulse Resp BP Pulse Ox 97.9 F 74 18 111/63 100 10/10/18 19:48 10/10/18 19:48 10/10/18 19:48 10/10/18 19:48 10/10/18 19:48 - Respiratory Respiratory status: No respiratory distress Breath sounds: Nonproductive cough, Wheezing - Cardiovascular Rhythm: Regular Heart sounds: S1 appreciated, S2 appreciated Course - Vital Signs Vital signs: Temp Pulse Resp BP Pulse Ox 97.9 F 74 18 111/63 100 10/10/18 19:48 10/10/18 19:48 10/10/18 19:48 10/10/18 19:48 10/10/18 19:48 Doctor's Discharge - Discharge Referrals: EVETTE MAI PA-C [Primary Care Provider] - Follow up as needed
[2018-10-10 22:49] LABS: ABSOLUTE EOSINOPHILS # (AUTO) 0.3 10^3/uL (0.0-0.6); ABSOLUTE LYMPHOCYTES (AUTO) 1.9 10^3/uL (0.5-4.7); ABSOLUTE MONOCYTES (AUTO) 0.4 10^3/uL (0.1-1.4); ABSOLUTE NEUT (AUTO) 4.1 10^3/uL (1.7-8.2); BASOPHILS % (AUTO) 0.6 % (0-2); EOSINOPHILS % (AUTO) 4.4 % (0-6); LYMPHOCYTES % (AUTO) 27.6 % (13-45); MEAN CORPUSCULAR HEMOGLOBIN 30.3 pg (27.0-33.4); MEAN CORPUSCULAR HGB CONC 34.1 g/dL (32.0-36.0); MEAN CORPUSCULAR VOLUME 89 fl (80-97); PLATELET COUNT 221 10^3/uL (150-450); RED BLOOD COUNT 4.62 10^6/uL (3.72-5.28); RED CELL DISTRIBUTION WIDTH 12.6 % (11.5-14.0); SEGMENTED NEUTROPHILS % (AUTO) 61.4 % (42-78); TOTAL CELLS COUNTED % (AUTO) 100 %; WHITE BLOOD COUNT 6.7 10^3/uL (4.0-10.5)
[2018-10-10 23:08] LABS: ALANINE AMINOTRANSFERASE 28 U/L (9-52); ALKALINE PHOSPHATASE 73 U/L (38-126); ANION GAP 10 (5-19); ASPARTATE AMINO TRANSFERASE 25 U/L (14-36); BILIRUBIN,DIRECT 0.2 mg/dL (0.0-0.4); BILIRUBIN,TOTAL 0.6 mg/dL (0.2-1.3); BLOOD UREA NITROGEN 8 mg/dL (7-20); CALCIUM 9.7 mg/dL (8.4-10.2); CARBON DIOXIDE 27 mmol/L (22-30); CHLORIDE 101 mmol/L (98-107); GLUCOSE 104 mg/dL (75-110); POTASSIUM 3.9 mmol/L (3.6-5.0); SODIUM 137.8 mmol/L (137-145)
[2018-10-11] MEDS ORDERED: KETOROLAC TROMETHAMINE INJ/PF 30 MG/1 ML SDV IV ONE (01:05)
--- NOTE | 2018-10-11 01:09 | ER Document Report ---
ED General - General Chief Complaint: Near Syncope Stated Complaint: FEELING FAINT Time Seen by Provider: 10/10/18 20:43 Primary Care Provider: RILEY ASHTON MD [ACTIVE STAFF] - Follow up as needed EVETTE MAI PA-C [Primary Care Provider] - Follow up as needed Mode of Arrival: Wheelchair Notes: Patient is a 23-year-old female with a past history of factor V Leiden, recurrent ovarian cyst, concern for possible endometriosis although has not had laparoscopy in the past for confirmation of this diagnosis, presents with complaints of 24 hours of severe lower abdominal pain with associated vaginal bleeding. Describes her pain as being a cramping, severe, constant discomfort that came on gradually and has gotten progressively worse since that time. States she has tried naproxen with no relief. Nothing seems to worsen her symptoms. States that she has a long-standing history of similar symptoms in the past each time she has a menstrual cycle. She states the pain is usually worse on the first day of the cycle which is today. She is scheduled to see her ADAPTIVE PHYSICAL EDUCATOR tomorrow regarding this issue but came to the emergency department tonight due to lack of pain control. She has not had fever or constitutional symptoms but has been very nauseated. TRAVEL OUTSIDE OF THE [place] IN LAST 30 DAYS: No - Related Data Allergies/Adverse Reactions: alcohol Allergy (Verified 10/10/18 19:33) latex [Latex] Allergy (Verified 10/10/18 19:33) Sulfa (Sulfonamide Antibiotics) Allergy (Verified 10/10/18 19:33) Past Medical History - General Information source: Patient - Social History Smoking Status: Never Smoker Frequency of alcohol use: None Drug Abuse: None Lives with: Spouse/Significant other Family History: Reviewed & Not Pertinent, Malignancy - paternal aunt with breast cancer Patient has suicidal ideation: No Patient has homicidal ideation: No - Past Medical History Cardiac Medical History: Reports: 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 - Immunizations Hx Diphtheria, Pertussis, Tetanus Vaccination: Yes Review of Systems - Review of Systems Notes: Constitutional: Negative for fever. HENT: Negative for sore throat. Eyes: Negative for visual changes. Cardiovascular: Negative for chest pain. Respiratory: Negative for shortness of breath. Gastrointestinal: Positive for lower abdominal pain Genitourinary: Positive for vaginal bleeding Musculoskeletal: Negative for back pain. Skin: Negative for rash. Neurological: Negative for headaches, weakness or numbness. 10 point ROS negative except as marked above and in HPI. Physical Exam - Vital signs Vitals: Temp Pulse Resp BP Pulse Ox 97.9 F 74 18 111/63 100 10/10/18 19:48 10/10/18 19:48 10/10/18 19:48 10/10/18 19:48 10/10/18 19:48 Interpretation: Normal Notes: PHYSICAL EXAMINATION: GENERAL: Appears moderately uncomfortable but in no acute distress. Emaciated. HEAD: Atraumatic, normocephalic. EYES: Pupils equal round and reactive to light, extraocular movements intact, sclera anicteric, conjunctiva are normal. ENT: nares patent, oropharynx clear without exudates. Mildly dry mucous membranes. NECK: Normal range of motion, supple without lymphadenopathy LUNGS: Breath sounds clear to auscultation bilaterally and equal. No wheezes rales or rhonchi. HEART: Regular rate and rhythm without murmurs ABDOMEN: Soft, nontender, normoactive bowel sounds. No guarding, no rebound. No masses appreciated. EXTREMITIES: Normal range of motion, no pitting or edema. No cyanosis. NEUROLOGICAL: No focal neurological deficits. Moves all extremities spontaneously and on command. PSYCH: Moderately anxious SKIN: Warm, Dry, normal turgor, no rashes or lesions noted. Course - Re-evaluation Re-evalutation: 10/11/18 01:08 Patient presents with recurrent lower abdominal pain usually on the first day of her menstrual cycle. Patient states that it is been this way ever since she began having a cycle. On exam the patient has no focal abdominal tenderness, rebound or guarding. Her labs are unremarkable. The patient does decline a transvaginal ultrasound stating that she needs to go home and that this is very similar to episodes she is had in the past and that she came to the emergency department primarily for symptom medic control. She is scheduled to see PHYSICIAN VICE PRESIDENT at 9 AM in the morning. I do not clinically suspect an ovarian torsion, tubo- ovarian abscess, acute appendicitis or any alternative life-threatening pathology based on exam and history. - Vital Signs Vital signs: Temp Pulse Resp BP Pulse Ox 97.9 F 74 18 111/63 100 10/10/18 19:48 10/10/18 19:48 10/10/18 19:48 10/10/18 19:48 10/10/18 19:48 - Laboratory Result Diagrams: 10/10/18 22:40 10/10/18 22:40 Discharge - Discharge Clinical Impression: Menstrual pain, Lower abdominal pain, Nausea Condition: Good Disposition: HOME, SELF-CARE Additional Instructions: Please follow-up with PHYSICIAN VICE PRESIDENT tomorrow as planned. Please discuss options for treatment of endometriosis as we discussed this evening. Return for fever greater than 100.4 F, intractable vomiting, passing out, or any other symptoms that are worrisome to you. Referrals: EVETTE MIA PA-C [Primary Care Provider] - Follow up as needed RILEY ASHTON MD [ACTIVE STAFF] - Follow up as needed
--- NOTE | 2018-10-11 22:39 | EKG REPORT ---
SEVERITY:- NORMAL ECG - SINUS RHYTHM : Confirmed by: Jesús Heck 11-Oct-2018 22:38:24
== END 2018-10-11 02:00 | disposition home or self-care (01) ==
LOC: ER 19:31
DX: N94.6 Dysmenorrhea, unspecified (principal); R10.30 Lower abdominal pain, unspecified; R11.0 Nausea; D68.51 Activated protein C resistance; J45.909 Unspecified asthma, uncomplicated
CPT/HCPCS: 93005; 99284; 96361; 96374; 36415; 84703; 85025; 80053; 93010; J1885; J7030

== ENCOUNTER 2018-12-06 19:20 | Emergency (ER) | payer BC ==
--- NOTE | 2018-12-06 20:21 | ER Document Report ---
ED Medical Screen (RME) - General Chief Complaint: Abdominal Pain Stated Complaint: ABDOMINAL PAIN Time Seen by Provider: 12/06/18 20:18 Primary Care Provider: EVETTE MAI PA-C [Primary Care Provider] - Follow up as needed TRAVEL OUTSIDE OF THE [place] IN LAST 30 DAYS: No - HPI Notes: 12/06/18 20:18 Patient is a 23-year-old female with a history of factor V Leiden, previous DVTs with stent placement left iliac, recurrent ovarian cysts who presents complaining of pain near the umbilicus with redness associated x1 day. Patient states that she has had a low-grade temp today. Patient states that yesterday she felt a lump underneath the erythemic area which has since improved. She does have a bellybutton ring in place for about 8 years. She has not noticed any discharge. She is urinating normally and having normal bowel movements. No vaginal odor, discharge or bleeding. Denies LEVI, fever, neck pain, URI, CP, SOB, n/v/d, dysuria, back pain. I have treated and performed a rapid initial assessment of this patient. A comprehensive ED assessment and evaluation of the patient, analysis of test results and completion of medical decision making process will be conducted by additional ED providers. PHYSICAL EXAMINATION: GENERAL: Well-appearing, well-nourished and in no acute distress. A&Ox4. Answers questions appropriately. Vitals: HR 96 during exam LUNGS: Breath sounds clear to auscultation bilaterally and equal. No wheezes rales or rhonchi. HEART: Regular rate and rhythm without murmurs, rubs, gallops. ABDOMEN: Soft, nondistended abdomen. No guarding, no rebound. Normal bowel sounds present. No CVA tenderness bilaterally. + erythema/warmth around umbilicus with associated tenderness (cannot elicit thorough abd exam w/o bed, however). Extremities: No cyanosis, clubbing, or edema b/l. NEUROLOGICAL: Normal speech, normal gait. PSYCH: Normal mood, normal affect. - Related Data Allergies/Adverse Reactions: alcohol Allergy (Verified 10/10/18 19:33) latex [Latex] Allergy (Verified 10/10/18 19:33) Sulfa (Sulfonamide Antibiotics) Allergy (Verified 10/10/18 19:33) Past Medical History - Past Medical History Cardiac Medical History: Reports: 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 - Immunizations Hx Diphtheria, Pertussis, Tetanus Vaccination: Yes Physical Exam - Vital signs Vitals: Temp Pulse Resp BP Pulse Ox 99.3 F 125 H 16 109/75 99 12/06/18 19:26 12/06/18 19:26 12/06/18 19:26 12/06/18 19:26 12/06/18 19:26 Course - Vital Signs Vital signs: Temp Pulse Resp BP Pulse Ox 99.3 F 125 H 16 109/75 99 12/06/18 19:26 12/06/18 19:26 12/06/18 19:26 12/06/18 19:26 12/06/18 19:26 Doctor's Discharge - Discharge Referrals: EVETTE MAI PA-C [Primary Care Provider] - Follow up as needed
--- NOTE | 2018-12-06 21:16 | RADIOLOGY REPORT (SQ) ---
US ABDOMEN LIMITED EXAM DATE: 12/06/2018 8:18 PM CDT HISTORY: Erythema pain near umbilicus COMPARISON: None. TECHNIQUE: Archibald-scale and color Doppler images of the umbilicus were obtained. FINDINGS: No mass, fluid collection, or adenopathy is seen in the periumbilical region. IMPRESSION: Unremarkable study.
[2018-12-06 22:46] LABS: ABSOLUTE EOSINOPHILS # (AUTO) 0.2 10^3/uL (0.0-0.6); ABSOLUTE LYMPHOCYTES (AUTO) 1.1 10^3/uL (0.5-4.7); ABSOLUTE MONOCYTES (AUTO) 0.7 10^3/uL (0.1-1.4); ABSOLUTE NEUT (AUTO) 3.3 10^3/uL (1.7-8.2); BASOPHILS % (AUTO) 0.6 % (0-2); HEMATOCRIT 43.1 % (36.0-47.0); HEMOGLOBIN 14.6 g/dL (12.0-15.5); LYMPHOCYTES % (AUTO) 21.7 % (13-45); MEAN CORPUSCULAR HEMOGLOBIN 30.2 pg (27.0-33.4); MEAN CORPUSCULAR VOLUME 89 fl (80-97); MONOCYTES % (AUTO) 12.9 % (3-13); PLATELET COUNT 133 10^3/uL (150-450); RED BLOOD COUNT 4.85 10^6/uL (3.72-5.28); RED CELL DISTRIBUTION WIDTH 12.5 % (11.5-14.0); SEGMENTED NEUTROPHILS % (AUTO) 61.8 % (42-78); TOTAL CELLS COUNTED % (AUTO) 100 %; WHITE BLOOD COUNT 5.3 10^3/uL (4.0-10.5)
[2018-12-06 22:59] LABS: APPEARANCE,URINE CLEAR; BILIRUBIN,URINE NEGATIVE (NEGATIVE); COLOR,URINE YELLOW; GLUCOSE, URINE NEGATIVE (NEGATIVE); KETONES,URINE TRACE mg/dL (NEGATIVE); LEUKOCYTE ESTERASE,URINE SMALL (NEGATIVE); NITRITE,URINE NEGATIVE (NEGATIVE); PROTEIN,URINE NEGATIVE (NEGATIVE); URINE SPECIFIC GRAVITY 1.023; UROBILINOGEN,URINE NEGATIVE mg/dL (<2.0)
[2018-12-06 23:09] LABS: ALANINE AMINOTRANSFERASE 25 U/L (9-52); ALBUMIN 4.3 g/dL (3.5-5.0); ALKALINE PHOSPHATASE 63 U/L (38-126); ANION GAP 10 (5-19); ASPARTATE AMINO TRANSFERASE 31 U/L (14-36); BILIRUBIN,DIRECT 0.2 mg/dL (0.0-0.4); BILIRUBIN,TOTAL 0.4 mg/dL (0.2-1.3); BLOOD UREA NITROGEN 10 mg/dL (7-20); CALCIUM 9.2 mg/dL (8.4-10.2); CARBON DIOXIDE 26 mmol/L (22-30); CHLORIDE 103 mmol/L (98-107); GLUCOSE 100 mg/dL (75-110); POTASSIUM 3.8 mmol/L (3.6-5.0); SODIUM 138.5 mmol/L (137-145); TOTAL PROTEIN 7.1 g/dL (6.3-8.2)
--- NOTE | 2018-12-07 01:50 | ER Document Report ---
ED General - General Chief Complaint: Abdominal Pain Stated Complaint: ABDOMINAL PAIN Time Seen by Provider: 12/06/18 20:18 Primary Care Provider: EVETTE MAI PA-C [Primary Care Provider] - Follow up in 3-5 days Notes: Patient is a 23-year-old female who presents the emergency department with a chief complaint of abdominal pain. She has a history of factor V Leiden with DVTs in the past. She states that she has a stent, which may actually be a filter. The patient states that she has redness around her umbilicus area. Patient was seen by her primary care provider and was prescribed Keflex, but she has not taken it yet. She states that she did have a small lump yesterday underneath her umbilicus area and now the lump is not there. Patient does have a bellybutton ring in, but states that it is not new. She denies any new jewelry to the area. She denies any fever, body aches, chills, nausea, vomiting, diarrhea, or any other symptoms. TRAVEL OUTSIDE OF THE [place] IN LAST 30 DAYS: No - Related Data Allergies/Adverse Reactions: alcohol Allergy (Verified 10/10/18 19:33) latex [Latex] Allergy (Verified 10/10/18 19:33) Sulfa (Sulfonamide Antibiotics) Allergy (Verified 10/10/18 19:33) Past Medical History - General Information source: Patient - Social History Smoking Status: Never Smoker Family History: Reviewed & Not Pertinent, Malignancy - paternal aunt with breast cancer - Past Medical History Cardiac Medical History: Reports: 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 - Immunizations Hx Diphtheria, Pertussis, Tetanus Vaccination: Yes Review of Systems - Review of Systems Notes: REVIEW OF SYSTEMS: CONSTITUTIONAL : Denies recent illness. Denies recent unintentional weight loss. Denies fever, chills, or sweats. EENT: Denies eye, ear, throat, or mouth pain, discharge, or symptoms. Denies nasal or sinus congestion. CARDIOVASCULAR: Denies chest pain. RESPIRATORY: Denies shortness of breath, cough, congestion, difficulty breathing, or wheezing. GASTROINTESTINAL: See HPI GENITOURINARY: Denies difficulty urinating, burning, blood in urine, urgency or frequency. MUSCULOSKELETAL: Denies neck and back pain. Denies joint pain or swelling. SKIN: Denies rash, itchiness, or lesions HEMATOLOGIC : Denies easy bruising or bleeding. LYMPHATIC: Denies swollen, painful, enlarged glands. NEUROLOGICAL: Denies no numbness or tingling denies weakness. Denies headache. Denies altered mental status. Denies alteration in speech. PSYCHIATRIC: Denies stress, anxiety, alteration in sleep patterns, or depression. All other systems reviewed and negative. Physical Exam - Vital signs Vitals: Temp Pulse Resp BP Pulse Ox 99.3 F 125 H 16 109/75 99 12/06/18 19:26 12/06/18 19:26 12/06/18 19:26 12/06/18 19:26 12/06/18 19:26 - Notes Notes: PHYSICAL EXAMINATION: GENERAL: Appears well, healthy, well-nourished, no acute distress. HEAD: Normocephalic, atraumatic. EYES: PERRL, conjunctiva normal, all extraocular movements intact, sclera dora cteric ENT: Moist mucous membranes. NECK: Supple, no noticeable swelling, redness, rash. Normal range of motion. LUNGS: Equal breath sounds bilaterally and clear to auscultation. No wheezes rales or rhonchi. CARDIOVASCULAR: S1-S2, regular rate, regular rhythm. Radial pulses 2+, normal. ABDOMEN: Normoactive bowel sounds. Soft, mildly tender, no guarding, no rebound tenderness, and no masses palpated. EXTREMITIES: Normal strength and range of motion, no pitting or edema. No cyanosis. NEUROLOGICAL: Moves all extremities upon command. Strength 5/5 in all extremities. PSYCH: Normal mood, normal affect. SKIN: Warm, dry. No rash, lesions, ulcerations noted. Normal skin turgor. And erythematous blanchable cherokee noted around patient's umbilicus about 5 cm in diameter. Course - Re-evaluation Re-evalutation: 12/07/18 Patient's labs and ultrasound were ordered in triage are all unremarkable. Her abdominal exam was very benign. She had very minimal tenderness upon palpation. I was very low suspicion for appendicitis, bowel obstruction, mesenteric ischemia, or any life-threatening etiology at this time. Since the patient has a history of DVTs I have offered her to have her d-dimer drawn and based off of the d-dimer we could indicate whether or not she could possibly have a clot, although I think this is a very unlikely, as she has what sounds like an IVC filter. Patient is refusing the d-dimer at this time. The patient does want to go home. She states that she feels she can follow-up with her primary care provider. I advised her to start taking the Keflex and give it a try to see if it works. Strict follow-up precautions were given. Follow-up precautions were given. Verbal discharge instructions were given to the patient. They verbalized understanding. They are stable for discharge. - Vital Signs Vital signs: Temp Pulse Resp BP Pulse Ox 98.2 F 77 18 116/70 99 12/07/18 02:11 12/07/18 02:11 12/07/18 02:11 12/07/18 02:11 12/07/18 02:11 - Laboratory Result Diagrams: 12/06/18 22:04 12/06/18 22:04 Laboratory results interpreted by me: 12/06/18 12/06/18 20:36 22:04 Plt Count 133 L Urine Ketones TRACE H Ur Leukocyte Esterase SMALL H Discharge - Discharge Clinical Impression: Abdominal pain Qualifiers: Abdominal location: unspecified location Qualified Code(s): R10.9 - Unspecified abdominal pain Condition: Stable Disposition: HOME, SELF-CARE Additional Instructions: You are seen today in the emergency department for abdominal pain. Your ultrasound was normal. All your labs were normal. You are choosing not to have additional labs and/or a CT of the abdomen to determine the cause of your abdominal pain. Please follow-up with your primary care provider in regards to this visit. Please take the antibiotics you were prescribed by your primary care provider. If you have worsening symptoms, or have any symptoms that are worrisome to you, please return to the emergency department. Referrals: EVETTE MAI PA-C [Primary Care Provider] - Follow up in 3-5 days
[2018-12-07 02:13] VITALS: BP 116/70
== END 2018-12-07 02:11 | disposition home or self-care (01) ==
LOC: ER 19:20
DX: R10.9 Unspecified abdominal pain (principal); D68.51 Activated protein C resistance; Q96.8 Other variants of Turner's syndrome; L53.8 Other specified erythematous conditions; Z86.718 Personal history of other venous thrombosis and embolism; Z95.820 Peripheral vascular angioplasty status with implants and grafts; Z87.42 Personal history of other diseases of the female genital tract
CPT/HCPCS: 36415; 76705; 80053; 81001; 81025; 85025; 99284

== ENCOUNTER 2019-09-06 11:01 | Emergency (ER) | payer BC ==
--- NOTE | 2019-09-06 11:37 | ER Document Report ---
ED Medical Screen (RME) - General Chief Complaint: Knee Pain Stated Complaint: KNEE PAIN Time Seen by Provider: 09/06/19 11:34 Primary Care Provider: EVETTE MAI PA-C [Primary Care Provider] - Follow up as needed Mode of Arrival: Wheelchair Information source: Patient Notes: 24-year-old female presented to ED for complaint of right leg pain swelling and redness. She states this started about the knee. She states she does have 2 clotting disorders factor V Leiden and may Thurner's. She also has a history of DVTs. Asthma and Chiari I malformation. Patient denies any smoking drinking or using any drugs. Patient is alert oriented respirations regular nonlabored speaking in full sentences. I have greeted and performed a rapid initial assessment of this patient. A comprehensive ED assessment and evaluation of the patient, analysis of test results and completion of medical decision making process will be conducted by an additional ED providers. TRAVEL OUTSIDE OF THE [place] IN LAST 30 DAYS: No - Related Data Allergies/Adverse Reactions: alcohol Allergy (Verified 10/10/18 19:33) latex [Latex] Allergy (Verified 10/10/18 19:33) Sulfa (Sulfonamide Antibiotics) Allergy (Verified 10/10/18 19:33) Past Medical History - Past Medical History Cardiac Medical History: Reports: 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 - Immunizations Hx Diphtheria, Pertussis, Tetanus Vaccination: Yes Physical Exam - Vital signs Vitals: Temp Pulse Resp BP Pulse Ox 98.8 F 119 H 16 127/69 H 100 09/06/19 11:09/06/19 11:09/06/19 11:09/06/19 11:09/06/19 11:01 Course - Vital Signs Vital signs: Temp Pulse Resp BP Pulse Ox 98.8 F 119 H 16 127/69 H 100 09/06/19 11:01 09/06/19 11:01 09/06/19 11:01 09/06/19 11:01 09/06/19 11:01 Doctor's Discharge - Discharge Referrals: EVETTE MAI PA-C [Primary Care Provider] - Follow up as needed
[2019-09-06 12:08] LABS: ABSOLUTE EOSINOPHILS # (AUTO) 0.5 10^3/uL (0.0-0.6); ABSOLUTE LYMPHOCYTES (AUTO) 1.2 10^3/uL (0.5-4.7); ABSOLUTE MONOCYTES (AUTO) 0.9 10^3/uL (0.1-1.4); ABSOLUTE NEUT (AUTO) 5.5 10^3/uL (1.7-8.2); BASOPHILS % (AUTO) 0.5 % (0-2); EOSINOPHILS % (AUTO) 6.4 % (0-6); HEMATOCRIT 40.5 % (36.0-47.0); HEMOGLOBIN 14.2 g/dL (12.0-15.5); LYMPHOCYTES % (AUTO) 15.1 % (13-45); MEAN CORPUSCULAR HEMOGLOBIN 31.2 pg (27.0-33.4); MEAN CORPUSCULAR HGB CONC 35.1 g/dL (32.0-36.0); MEAN CORPUSCULAR VOLUME 89 fl (80-97); MONOCYTES % (AUTO) 10.8 % (3-13); PLATELET COUNT 192 10^3/uL (150-450); RED BLOOD COUNT 4.54 10^6/uL (3.72-5.28); RED CELL DISTRIBUTION WIDTH 12.6 % (11.5-14.0); SEGMENTED NEUTROPHILS % (AUTO) 67.2 % (42-78); TOTAL CELLS COUNTED % (AUTO) 100 %; WHITE BLOOD COUNT 8.1 10^3/uL (4.0-10.5)
--- NOTE | 2019-09-06 12:20 | ER Document Report ---
ED Extremity Problem, Lower - General Chief Complaint: Leg Pain Stated Complaint: KNEE PAIN Time Seen by Provider: 09/06/19 11:34 Primary Care Provider: EVETTE MAI PA-C [Primary Care Provider] - Follow up as needed Mode of Arrival: Wheelchair Notes: CHIEF COMPLAINT: Right knee swelling and leg pain HPI: 24-year-old female with history of DVT and factor Leiden presenting for right knee swelling and discomfort over the last for 5 days. Also now with calf pain and swelling. Patient is concerned about DVT. She is not currently on anticoagulation. No chest pain or shortness of breath. Patient was seen at an outside facility several days ago for left shoulder pain and they believe she may have torn something while sleeping. Patient denies specific trauma. She does complain of swelling over the anterior knee. ROS: See HPI - all other systems were reviewed and are otherwise negative Constitutional: no fever Eyes: no drainage, no blurred vision ENT: no runny nose, no sore throat Cardiovascular: no chest pain Resp: no SOB, no cough GI: no vomiting, no diarrhea, no abdominal pain : no dysuria Integumentary: no rash Allergy: no hives Musculoskeletal: Positive extremity pain or swelling Neurological: no numbness/tingling, no weakness MEDICATIONS: I agree with the patient medications as charted by the RN. ALLERGIES: I agree with the allergies as charted by the RN. PAST MEDICAL HISTORY/PAST SURGICAL HISTORY: Reviewed and agree as charted by RN. SOCIAL HISTORY: Reviewed and agree as charted by RN. FAMILY HISTORY: No significant familial comorbid conditions directly related to patient complaint EXAM: Reviewed vital signs as charted by RN. CONSTITUTIONAL: Alert and oriented and responds appropriately to questions. Well-appearing; well-nourished, mild distress HEAD: Normocephalic; atraumatic EYES: PERRL; Conjunctivae clear, sclerae non-icteric ENT: normal nose; no rhinorrhea; moist mucous membranes; pharynx without lesions noted, no uvula edema or deviation NECK: Supple without meningismus; non-tender; no cervical lymphadenopathy, no masses CARD: RRR; no murmurs, no clicks, no rubs, no gallops; symmetric distal pulses RESP: Normal chest excursion without splinting or tachypnea; breath sounds clear and equal bilaterally; no wheezes, no rhonchi, no rales, pulse oximetry ABD/GI: Normal bowel sounds; non-distended; soft, non-tender, no rebound, no guarding; no palpable organomegaly or masses. BACK: The back appears normal and is non-tender to palpation, there is no CVA tenderness EXT: There is effusion over the anterior right knee with tenderness on palpation. There is no overlying erythema there is slightly increased warmth. There is moderate tenderness to the posterior right knee on palpation. No palpable mass. The right calf is tender, not visibly swollen or erythematous. There is no discomfort on palpation of the right medial thigh. Popliteal, dorsalis pedis and posterior tibial pulses are present in the right lower extre mity. SKIN: Normal color for age and race; warm; dry; good turgor; no acute lesions noted NEURO: Moves all extremities equally; Motor and sensory function intact PSYCH: The patient's mood and manner are appropriate. Grooming and personal hygiene are appropriate. MDM: 24-year-old female with history of DVT presenting for swelling over the right knee with pain into the right calf. Differential is large may include DVT may also include Garcia's cyst or knee injury. Patient does not recall a s pecific trauma to the knee. She is afebrile, lower suspicion for septic joint, no overlying erythema to the knee. Initial screening labs done through the triage process are not actionable. Doppler study has been ordered awaiting results TRAVEL OUTSIDE OF THE [place] 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 - Immunizations Hx Diphtheria, Pertussis, Tetanus Vaccination: Yes Physical Exam - Vital signs Vitals: Temp Pulse Resp BP Pulse Ox 98.8 F 119 H 16 127/69 H 100 09/06/19 11:01 09/06/19 11:01 09/06/19 11:01 09/06/19 11:01 09/06/19 11:01 Course - Re-evaluation Re-evalutation: 09/06/19 13:34 Doppler study of the right lower extremity does not reveal evidence of a DVT. I did speak with the Doppler tech and she states there is something behind the knee she is not sure if it is an involuting Garcia's cyst but it is not a blood clot. I discussed this at length with the patient. She is on naproxen already for shoulder issue, she may continue naproxen I will write patient a short course of stronger pain medication after discussion with her for use at home. I will refer patient to orthopedics for follow-up and further evaluation 09/06/19 13:37 Patient heart rate was noted to be elevated in triage, will have nursing recheck prior to discharge and notify me if abnormal - Vital Signs Vital signs: Temp Pulse Resp BP Pulse Ox 98.8 F 119 H 16 127/69 H 100 09/06/19 11:01 09/06/19 11:01 09/06/19 11:01 09/06/19 11:01 09/06/19 11:01 - Laboratory Result Diagrams: 09/06/19 11:52 09/06/19 11:52 Laboratory results interpreted by me: 09/06/19 09/06/19 11:52 11:52 Eos % (Auto) 6.4 H Sodium 136.0 L Creatinine 0.50 L Glucose 127 H Discharge - Discharge Clinical Impression: Leg pain, right Knee pain, right Qualifiers: Chronicity: acute Qualified Code(s): M25.561 - Pain in right knee Condition: Stable Disposition: HOME, SELF-CARE Instructions: Oral Narcotic Medication ([facility]) Additional Instructions: Ice or cool compresses to the right knee 2-3 times daily for 5 to 10 minutes at a time to help with swelling and pain. Continue the naproxen as previously prescribed. Take the hydrocodone for severe pain. Do not drive if taking hydrocodone as this medication can make you drowsy. Follow-up closely with orthopedics for further evaluation and treatment call for appointment. Your lab work did not show acute abnormalities today. Your Doppler study today was negative for a blood clot. The tech was not sure if there might be a small Garcia's cyst behind the knee, this can be followed up with orthopedics Prescriptions: Hydrocodone/Acetaminophen [[place] 5-325 mg Tablet] 1 tab PO Q4 PRN #15 tablet PRN Reason: Referrals: EVETTE MAI PA-C [Primary Care Provider] - Follow up as needed NATASHA HAINES MD [ACTIVE STAFF] - Follow up as needed
[2019-09-06 12:23] LABS: INTERNATIONAL RATION (INR) 1.11; PARTIAL THROMBOPLASTIN TIME 35.4 SEC (23.5-35.8); PROTHROMBIN TIME 14.3 SEC (11.4-15.4)
[2019-09-06 12:26] LABS: ALKALINE PHOSPHATASE 58 U/L (38-126); ANION GAP 6 (5-19); ASPARTATE AMINO TRANSFERASE 24 U/L (14-36); BILIRUBIN,TOTAL 0.6 mg/dL (0.2-1.3); BLOOD UREA NITROGEN 10 mg/dL (7-20); CALCIUM 9.6 mg/dL (8.4-10.2); CARBON DIOXIDE 27 mmol/L (22-30); CHLORIDE 103 mmol/L (98-107); GLUCOSE 127 mg/dL (75-110); POTASSIUM 4.2 mmol/L (3.6-5.0)
[2019-09-06 14:18] VITALS: BP 112/65
--- NOTE | 2019-09-06 20:43 | RADIOLOGY REPORT (SQ) ---
EXAM DESCRIPTION: ULTRASOUND- right lower extremity venous Doppler ultrasound CLINICAL HISTORY: Right leg swelling, and pain, and history of DVT. COMPARISON: None available. TECHNIQUE: Archibald scale, color and Doppler sonographic evaluation of the right lower extremity was performed. FINDINGS: There is no evidence of acute/chronic deep venous thrombosis in the right common femoral through proximal calf veins, including the popliteal, peroneal, posterior tibial veins and right greater saphenous vein/common femoral vein junction. Normal color/phasic flow, augmentation, compressibility and lack of filling defects, is demonstrated in these visualized vessels. A well-circumscribed structure in the popliteal fossa demonstrates mixed echogenicity and measures up to 2.5 cm. No internal vascularity. IMPRESSION: Negative for deep vein thrombosis in the evaluated left lower extremity deep venous system. Lesion in the right popliteal fossa is nonspecific and may represent a Garcia's. Clinical correlation is advised. If further workup is required, MRI could be performed.
== END 2019-09-06 14:23 | disposition home or self-care (01) ==
LOC: ER 11:01
DX: M25.561 Pain in right knee (principal); M79.604 Pain in right leg; Z86.718 Personal history of other venous thrombosis and embolism; Z91.040 Latex allergy status; Z88.2 Allergy status to sulfonamides
CPT/HCPCS: 36415; 80053; 84703; 85025; 85610; 85730; 93971; 99284